=== PATIENT | male | born 1930 | race Caucasian/White ===

== ENCOUNTER 2016-10-01 18:33 | Inpatient (IN) | payer MEDICARE ==
[2016-10-01] MEDS ORDERED: NS 1,000 ML IV ONE ×2 (18:56→23:07)
[2016-10-01] MEDS ORDERED: IBUPROFEN 800 MG TAB PO ONE (18:56)
--- NOTE | 2016-10-01 18:56 | EDPRACDOC ---
- General Information Information Source: Patient, [employer] Mode Of Arrival: Ambulance - History of Present Illness Onset: 14 hrs HPI: PT STATES "I THINK I HAVE THE FLU", SYMPTOMS SINCE YESTERDAY, STATES NONPROD COUGH, SOBR, BODY ACHES, NO N/V/D, NO URINARY SYMPTOMS, TOOK TYLENOL THIS MORNING. Shortness of Breath: Mild Relevant History of: Reports: None Cough: Reports: Non-productive Rhinorrhea: Reports: Clear Fever Severity/Quality: Reports: greater than 102 F Ear Symptoms: Reports: None Recently treated infections: Denies: Otitis media, Pneumonia, URI Associated Signs & Symptoms: Reports: Cough, Fever, Nasal Symptoms, Myalgia. Denies: Earache, Headache, Sore Throat, Nausea, Vomiting, Diarrhea, Rash, Pain with head movement, AMS Oral Intake: Normal Urinary Output: Normal <Severo Spencer - Last Filed: 10/01/16 20:40> <Edin Alba - Last Filed: 10/01/16 21:13> - General Information Chief Complaint: Fever Stated Complaint: WEAKNESS,FEVER Time Seen by Provider: 10/01/16 18:49 Home Medications: Home Medications Donepezil HCl [Aricept] 10 mg PO QHS 08/25/13 Nortriptyline HCl 75 mg PO QHS 08/25/13 Clonazepam 1 mg PO QHS 08/31/15 Meloxicam 15 mg PO QHS 08/31/15 Prednisone [Deltasone, Orasone] 5 mg PO DAILY 08/31/15 Pregabalin [Lyrica] 150 mg PO QHS 08/31/15 Zolpidem Tartrate [Ambien] 10 mg PO HS 08/31/15 Nitroglycerin Sublingual Tab [NTG (NitroStat Sublingual Tab)] 0.4 mg SL PRN PRN #30 tablet 09/01/15 Aspirin (Enteric Coated) [Ecotrin] 81 mg PO DAILY 09/03/15 Metoprolol Succinate (XL) [Toprol Xl] 25 mg PO DAILY 09/03/15 Atorvastatin Calcium [Lipitor] 20 mg PO HS 10/01/16 Fentanyl [Duragesic] 12 mcg TOP Q72H 10/01/16 Fentanyl [Duragesic] 25 mcg TOP Q72H 10/01/16 Furosemide [Lasix] 40 mg PO DAILY 01/29/17 Allergies/Adverse Reactions: Allergies Allergy/AdvReac Type Severity Reaction Status Date / Time No Known Allergies Allergy Verified 09/03/15 15:13 - Treatment Prior to ED Arrival Reported Medications/Treatment DETASSELER Meds/Treatments Given O2 via Cannula EMS Treatment ALS IV Yes <Severo Spencer - Last Filed: 10/01/16 20:40> - Treatment Prior to ED Arrival Reported Medications/Treatment DETASSELER Meds/Treatments Given O2 via Cannula EMS Treatment ALS IV Yes <Edin Alba - Last Filed: 10/01/16 21:13> ED Past Medical History - History Reviewed Yes Nurses notes reviewed and agree except as marked - Patient Medical History Neurological History: Reports: Dementia Cardiac History: Reports: Hypertension, Cardiac Catheterization (In 1995 clean) , Cardiomyopathy (Ejection fraction 43% by echocardiogram earlier this year) Respiratory History: Reports: Asthma, COPD, Pulmonary Embolism Musculoskeletal History: Reports: Arthritis Psychological History: Reports: Depression, Anxiety. Denies: Substance Use Disorder Systemic History: Denies: Cancer Additional Past Medical History: POST HERPETIC NEURALGIA R FLANK FOR ~ 3 YEARS Surgical History: Reports: Cardiac Catheterization (In 1995), Hernia Surgery, Tonsillectomy/Adnoidectomy - Family Medical History Reports: Diabetes (MOTHER), Cancer (BRAIN TUMOR) - Social Medical History Smoking Status: Never smoker Social History: Denies: Substance Use Disorder ETOH: None Substance Abuse: None Lives With: Spouse Lives In: Home <Severo Spencer - Last Filed: 10/01/16 20:40> EDM Review of Systems - Review of Systems Constitutional: Chills, Fever Eyes: negative: Blurred Vision, Double Vision Ears: negative: Drainage Throat: negative: Pain Nose: Congestion. negative: Discharge Respiratory: Cough, Shortness of Breath. negative: Wheezing Cardiovascular: negative: Chest Pain, Palpitations Gastrointestinal: negative: Diarrhea, Nausea, Pain, Vomiting Genitourinary: negative: Dysuria, Frequency Neurological: negative: Dizziness, Headache, Numbness, Weakness Musculoskeletal: No Symptoms Reported Integumentary: No Symptoms Reported <Severo Spencer - Last Filed: 10/01/16 20:40> - Physical Exam Constitutional: Alert (Awake), No apparent distress Oriented to: Time, Person, Place Last recorded Vital Signs: Last Vital Signs Temp 103 F H 10/01/16 18:52 Pulse 115 01/29/17 18:52 Resp 23 10/01/16 18:52 BP 100/63 10/01/16 18:52 Pulse Ox 93 10/01/16 18:52 Oxygen Pulse Oxygen Saturation 93 O2 Device Oxygen Flow Rate Fraction of Inspired Oxygen ( FIO2) - HEENT Head: Normal ( normocephalic) Eye Exam: Normal (PERRL, EOMI, Sclera white) Oropharynx: Normal (Pharynx:Moist without exudate,Gums-no swelling) Tympanic Membrane: Normal ENT EAC: Normal TMJ: Normal Nose: No Symptoms Reported (septum midline) Neck: Normal (FROM, trachea at midline) - Respiratory/Cardiovascular Respiratory: Rhonchi. negative: Accessory Muscle Use, Retractions Cardiovascular: Normal (RRR without murmur, gallop or rub) - GI Auscultation: Normal (NABS) Palpation: Normal (Soft,No rebound or guarding, non distended) Tenderness: Non tender Crouch's Sign: Negative - Musculoskeletal Back: Normal (Non-Tender) Extremities: Normal (Normal tone, Pulses 2+ No cyanosis or edema, FROM) - Integumentary Skin: Normal, Warm, Dry Lymphatics: Normal (no adenopathy) - Neurologic Memory Impaired: Normal Motor Function: Normal (Normal tone, Pulses 2+ No cyanosis or edema, FROM) Cranial Nerve: Normal (CN II-X11 intact sensation, strength 5/5) Cerebellar: Normal Mood Description: Normal Perception: Normal <Severo Spencer - Last Filed: 10/01/16 20:40> - Physical Exam Last recorded Vital Signs: Last Vital Signs Temp 99.8 F 10/01/16 20:22 Pulse 103 10/01/16 20:54 Resp 18 10/01/16 20:54 BP 125/66 10/01/16 20:54 Pulse Ox 92 10/01/16 20:54 Oxygen Pulse Oxygen Saturation 92 O2 Device Nasal Cannula Oxygen Flow Rate 2 Fraction of Inspired Oxygen ( FIO2) <Edin Alba - Last Filed: 10/01/16 21:13> - Differential Diagnosis Influenza A B, Pneumonia, Sinusitis, URI - Re-evaluation Re-evaluation 1 Re-evaluation Time: 20:43 (NO CHANGE) - Results 10/01/16 18:59 10/01/16 18:59 - EKG EKG #1 EKG Time: 18:54 -: Yes EKG interpreted by me Rate: bpm: 111 [place]: Normal Rhythm: ST Block: LBBB Hypertrophy: None ST: Nonsp Comparison: 08/31/15 (NO CHANGE) - Diagnostic Imaging CXR Image interpreted by: Radiologist CHEST - 2 VIEW COMPARISON: None. FINDINGS: The heart is enlarged. Chronic interstitial coarsening is present. There is no focal airspace disease within the medial right lower lobe. No other focal airspace consolidation is present. Atherosclerotic changes are noted at the aortic arch. The visual soft tissues and bony thorax are unremarkable. IMPRESSION: 1. New medial right lower lobe pneumonia. 2. Cardiomegaly and chronic interstitial lung changes without edema or effusion. <Severo Spencer - Last Filed: 10/01/16 20:40> - Results 10/01/16 18:59 10/01/16 18:59 WBC 7.8 xk/uL (3.8-10.8) 10/01/16 18:59 RBC 5.25 xM/uL (4.70-6.10) 10/01/16 18:59 Hgb 14.9 g/dL (14.0-18.0) 10/01/16 18:59 Hct 44.2 % (42-52) 10/01/16 18:59 MCV 84 fL (80-94) 10/01/16 18:59 MCH 28.3 pg (27-32) 10/01/16 18:59 MCHC 33.7 g/dl (33-36) 10/01/16 18:59 RDW 13.6 % (11.5-14.5) 10/01/16 18:59 Plt Count 123 xk/uL (130-400) L 10/01/16 18:59 MPV 8.7 fL (7.4-10.4) 10/01/16 18:59 Neut % (Auto) 82.6 % (45-76) H 10/01/16 18:59 Lymph % (Auto) 9.3 % (17-44) L 10/01/16 18:59 [place] % (Auto) 6.7 % (3-10) 10/01/16 18:59 Eos % (Auto) 0.8 % (0-5) 10/01/16 18:59 Baso % (Auto) 0.6 % (0-2) 10/01/16 18:59 Absolute Neuts (auto) 6.40 xk/uL (1.7-8.2) 10/01/16 18:59 Absolute Lymphs (auto) 0.70 xk/uL (0.65-4.75) 10/01/16 18:59 PT 11.5 SEC (9.2-11.2) H 10/01/16 18:59 INR 1.1 10/01/16 18:59 APTT 25.5 SEC (22-35) 10/01/16 18:59 Puncture Site Left radial 10/01/16 20:55 pH 7.480 pH UNITS (7.35-7.45) H 10/01/16 20:55 pCO2 36.0 mmHg (35-45) 10/01/16 20:55 pO2 64.0 mmHg (80-100) L 10/01/16 20:55 HCO3 26.8 MMOL/L (22-26) H 10/01/16 20:55 Total CO2 27.9 MMOL/L (23-27) H 10/01/16 20:55 Base Excess 3.4 (+/- 2) H 10/01/16 20:55 FiO2 % 21 10/01/16 20:55 Specimen Drawn By Rakma 10/01/16 20:55 Sodium 140 mEq/L (137-146) 10/01/16 18:59 Potassium 3.1 mEq/L (3.5-5.1) L 10/01/16 18:59 Chloride 97 mEq/L (98-107) L 10/01/16 18:59 Carbon Dioxide 31 mMOL/L (22-33) 10/01/16 18:59 Anion Gap 15 mEq/L (8-16) 10/01/16 18:59 BUN 12 MG/DL (9-20) 10/01/16 18:59 Creatinine 0.90 MG/DL (0.66-1.25) 10/01/16 18:59 Estimated GFR (MDRD) > 60 mL/min (>=60) 10/01/16 18:59 Glucose 126 MG/DL (70-99) H 10/01/16 18:59 Calculated Osmolality 271 MOs/Kg (270-290) 10/01/16 18:59 Lactic Acid 1.9 mEq/L (0.7-2.1) 10/01/16 18:59 Calcium 8.8 MG/DL (8.4-10.2) 10/01/16 18:59 Total Bilirubin 1.9 MG/DL (0.2-1.3) H 10/01/16 18:59 AST 29 IU/L (17-59) 10/01/16 18:59 ALT 38 IU/L (21-72) 10/01/16 18:59 Alkaline Phosphatase 86 IU/L (50-160) 10/01/16 18:59 Troponin I 0.04 ng/mL (<.04) 10/01/16 18:59 Xix-E-Mgmujzntzlb Pept 3010 pg/mL (0-1800) H 10/01/16 18:59 Total Protein 6.9 G/DL (6.3-8.2) 10/01/16 18:59 Albumin 4.1 G/DL (3.5-5.0) 10/01/16 18:59 Lipase 49 U/L (23-300) 10/01/16 18:59 Urine Color Yellow 10/01/16 19:11 Urine Clarity Clear 10/01/16 19:11 Urine pH 5.0 (5.0-8.0) 10/01/16 19:11 Ur Specific [place] 1.010 (1.003-1.035) 10/01/16 19:11 Urine Protein Neg (NEG/TRACE) 10/01/16 19:11 Urine Glucose (UA) Neg (NEGATIVE) 10/01/16 19:11 Urine Ketones Neg (NEGATIVE) 10/01/16 19:11 Urine Occult Blood Neg (NEG/TRACE) 10/01/16 19:11 Urine Nitrite Neg (NEGATIVE) 10/01/16 19:11 Urine Bilirubin Neg (NEGATIVE) 10/01/16 19:11 Urine Urobilinogen <2.0 MG/DL (0-1) 10/01/16 19:11 Ur Leukocyte Esterase Neg (NEGATIVE) 10/01/16 19:11 Urine RBC 0-2 (0-2) 10/01/16 19:11 Urine WBC 0-2 (0-2) 10/01/16 19:11 Urine Bacteria Few (NEG/FEW) 10/01/16 19:11 Hyaline Casts 0-2 (0-2) 10/01/16 19:11 Urine Mucus Occ (NEG/OCC) 10/01/16 19:11 Microbiology 10/01/16 19:26 Influenza Type A Antigen Screen - Final Nasal Washing/Aspirate Or Swab POSITIVE Please note: POSITIVE results do not rule out co-infection with other pathogens or identify any specific subtypes of Influenza A or B. ("NORMAL" value = "NEGATIVE".) Influenza Type B Antigen Screen - Final NEGATIVE Please note: A NEGATIVE result does not exclude an influenza virus infection. It is a presumptive result and, if required, confirmation should be done using either a virus culture or an FDA-cleared influenza A&B molecular assay. ("NORMAL" value = "NEGATIVE".) Lab Results 10/01/16 10/01/16 10/01/16 20:55 19:11 18:59 WBC RBC Hgb Hct MCV MCH MCHC RDW Plt Count MPV Neut % (Auto) Lymph % (Auto) [place] % (Auto) Eos % (Auto) Baso % (Auto) Absolute Neuts (auto) Absolute Lymphs (auto) PT 11.5 H INR 1.1 APTT 25.5 Puncture Site Left radial pH 7.480 H pCO2 36.0 pO2 64.0 L HCO3 26.8 H Total CO2 27.9 H Base Excess 3.4 H FiO2 % 21 Specimen Drawn By Rakma Sodium Potassium Chloride Carbon Dioxide Anion Gap BUN Creatinine Estimated GFR (MDRD) Glucose Calculated Osmolality Lactic Acid Calcium Total Bilirubin AST ALT Alkaline Phosphatase Troponin I Wuh-L-Ofnyiqclfrd Pept Total Protein Albumin Lipase Urine Color Yellow Urine Clarity Clear Urine pH 5.0 Ur Specific [place] 1.010 Urine Protein Neg Urine Glucose (UA) Neg Urine Ketones Neg Urine Occult Blood Neg Urine Nitrite Neg Urine Bilirubin Neg Urine Urobilinogen <2.0 Ur Leukocyte Esterase Neg Urine RBC 0-2 Urine WBC 0-2 Urine Bacteria Few Hyaline Casts 0-2 Urine Mucus Occ 10/01/16 10/01/16 10/01/16 18:59 18:59 18:59 WBC 7.8 RBC 5.25 Hgb 14.9 Hct 44.2 MCV 84 MCH 28.3 MCHC 33.7 RDW 13.6 Plt Count 123 L MPV 8.7 Neut % (Auto) 82.6 H Lymph % (Auto) 9.3 L [place] % (Auto) 6.7 Eos % (Auto) 0.8 Baso % (Auto) 0.6 Absolute Neuts (auto) 6.40 Absolute Lymphs (auto) 0.70 PT INR APTT Puncture Site pH pCO2 pO2 HCO3 Total CO2 Base Excess FiO2 % Specimen Drawn By Sodium 140 Potassium 3.1 L Chloride 97 L Carbon Dioxide 31 Anion Gap 15 BUN 12 Creatinine 0.90 Estimated GFR (MDRD) > 60 Glucose 126 H Calculated Osmolality 271 Lactic Acid 1.9 Calcium 8.8 Total Bilirubin 1.9 H AST 29 ALT 38 Alkaline Phosphatase 86 Troponin I 0.04 Agx-Q-Frkevytlrlj Pept 3010 H Total Protein 6.9 Albumin 4.1 Lipase 49 Urine Color Urine Clarity Urine pH Ur Specific [place] Urine Protein Urine Glucose (UA) Urine Ketones Urine Occult Blood Urine Nitrite Urine Bilirubin Urine Urobilinogen Ur Leukocyte Esterase Urine RBC Urine WBC Urine Bacteria Hyaline Casts Urine Mucus <Edin Alba - Last Filed: 10/01/16 21:13> <Severo Spencer - Last Filed: 10/01/16 20:40> - Departure Yes I personally saw and evaluated the patient. Disposition: Admit IP To This Hospital Education/Counseling Given To: Patient Education/Counseling Given Regarding: Diagnosis, Treatment, Prognosis Decision to Admit Time: 21:13 Decision to admit date: 10/01/16 Decision to admit: from ED - Physician Consulted Hospitalist Time Called: 21:13 Provider Called: Vikas Garay Time Roll Icer Machine Returned Call: 21:13 <Edin Alba - Last Filed: 10/01/16 21:13> - Departure Condition: Stable Final Diagnosis: Influenza A, Weakness Right lower lobe pneumonia Qualifiers: Pneumonia type: due to influenza A virus Qualified Code(s): J11.00 - Influenza due to unidentified influenza virus with unspecified type of pneumonia Referrals: Corry Julian NP [Primary Care Provider] - One Week Prescriptions: No Action Nortriptyline HCl 75 mg PO QHS Donepezil HCl [Aricept] 10 mg PO QHS Zolpidem Tartrate [Ambien] 10 mg PO HS Pregabalin [Lyrica] 150 mg PO QHS Clonazepam 1 mg PO QHS Meloxicam 15 mg PO QHS Prednisone [Deltasone, Orasone] 5 mg PO DAILY Nitroglycerin Sublingual Tab [NTG (NitroStat Sublingual Tab)] 0.4 mg SL PRN PRN #30 tablet PRN Reason: Chest Pain Or Discomfort Aspirin (Enteric Coated) [Ecotrin] 81 mg PO DAILY Metoprolol Succinate (XL) [Toprol Xl] 25 mg PO DAILY Furosemide [Lasix] 40 mg PO DAILY Fentanyl [Duragesic] 12 mcg TOP Q72H Fentanyl [Duragesic] 25 mcg TOP Q72H Atorvastatin Calcium [Lipitor] 20 mg PO HS
[2016-10-01 19:11] LABS: AUTOMATED BASOPHIL 0.6 % (0-2); AUTOMATED EOSINOPHIL 0.8 % (0-5); AUTOMATED LYMPH 9.3 % (17-44); AUTOMATED MONOCYTE 6.7 % (3-10); AUTOMATED NEUTROPHIL 82.6 % (45-76); MPV 8.7 fL (7.4-10.4)
[2016-10-01 19:19] LABS: BLOOD UREA NITROGEN 12 MG/DL (9-20); CALCIUM 8.8 MG/DL (8.4-10.2); CALCULATED OSMOLALITY 271 MOs/Kg (270-290); CHLORIDE 97 mEq/L (98-107); GLUCOSE 126 MG/DL (70-99); SODIUM LEVEL 140 mEq/L (137-146); TOTAL PROTEIN 6.9 G/DL (6.3-8.2)
[2016-10-01 19:32] LABS: LEUKOCYTES/URINE NEG (NEGATIVE); NITRITE/URINE NEG (NEGATIVE); RBC/URINE 0-2 (0-2); URINE OCCULT BLOOD NEG (NEG/TRACE); WBC/URINE 0-2 (0-2)
[2016-10-01 19:55] LABS: PARTIAL THROMB. TIME 25.5 SEC (22-35); PT-INR 1.1
--- NOTE | 2016-10-01 20:39 | DIRPT ---
CLINICAL DATA: Cough and fever. EXAM: CHEST - 2 VIEW COMPARISON: None. FINDINGS: The heart is enlarged. Chronic interstitial coarsening is present. There is no focal airspace disease within the medial right lower lobe. No other focal airspace consolidation is present. Atherosclerotic changes are noted at the aortic arch. The visual soft tissues and bony thorax are unremarkable. IMPRESSION: 1. New medial right lower lobe pneumonia. 2. Cardiomegaly and chronic interstitial lung changes without edema or effusion. Electronically Signed By: Alexis Hernandez M.D. On: 10/01/2016 20:36
[2016-10-01] MEDS ORDERED: Levofloxacin 500 mg/100 ml D5W 500 MG/100 ML RTU IV ONE (20:43)
[2016-10-01] MEDS ORDERED: OSELTAMIVIR PHOSPHATE 75 MG CAP PO ONE (20:43)
[2016-10-01 21:01] LABS: ALLEN'S TEST PASS; BEb 3.4 (+/- 2); TCO2 27.9 MMOL/L (23-27)
[2016-10-01 21:02] LABS: ABG Draw Site Left Radial
[2016-10-01] MEDS ORDERED: TUSSIONEX 5 ML ORAL SYRINGE PO ONE (21:16)
[2016-10-01] MEDS ORDERED: CEFTRIAXONE 1 GM in D5W 100 ML IV ONE (21:48)
--- NOTE | 2016-10-01 21:54 | HISTPHYS ---
- Chief Complaint shortness of breath - History of Present Illness PRIMARY CARE PROVIDER: Corry Julian HPI: The patient is an 86 yo man who presents with shortness of breath and feeling bad all over. Onset: over last few days. Duration: intermittent. Character: difficulty getting a good breath. Alleviated by: Nothing. Exacerbated by: exertion. Associated Symptoms: No chest pain or palpitations. Coughing and shortness of breath. No wheezing. Fever and chills. Generalized muscle aches and joint aches. Nausea. Treatments: none at home except usual medications. - Medical History Cardiac History: Reports: Hypertension, Cardiac Catheterization (In 1995 clean) , Cardiomyopathy (Ejection fraction 43% by echocardiogram earlier this year) Respiratory History: Reports: Asthma, COPD, Pulmonary Embolism Musculoskeletal History: Reports: Arthritis Systemic History: Denies: Cancer Neurological History: Reports: Dementia Psychological History: Reports: Depression, Anxiety. Denies: Substance Use Disorder - Surgical History Reports: Cardiac Catheterization (In 1995), Hernia Surgery, Tonsillectomy/ Adnoidectomy - Medictions/Allergies Allergies No Known Allergies Allergy (Verified 09/03/15 15:13) Current Medication List: Reviewed Home Medications Donepezil HCl [Aricept] 10 mg PO QHS 08/25/13 Nortriptyline HCl 75 mg PO QHS 08/25/13 Clonazepam 1 mg PO QHS 08/31/15 Meloxicam 15 mg PO QHS 08/31/15 Prednisone [Deltasone, Orasone] 5 mg PO DAILY 08/31/15 Pregabalin [Lyrica] 150 mg PO QHS 08/31/15 Zolpidem Tartrate [Ambien] 10 mg PO HS 08/31/15 Nitroglycerin Sublingual Tab [NTG (NitroStat Sublingual Tab)] 0.4 mg SL PRN PRN #30 tablet 09/01/15 Aspirin (Enteric Coated) [Ecotrin] 81 mg PO DAILY 09/03/15 Metoprolol Succinate (XL) [Toprol Xl] 25 mg PO DAILY 09/03/15 Atorvastatin Calcium [Lipitor] 20 mg PO HS 10/01/16 Fentanyl [Duragesic] 12 mcg TOP Q72H 10/01/16 Fentanyl [Duragesic] 25 mcg TOP Q72H 10/01/16 Furosemide [Lasix] 40 mg PO DAILY 10/01/16 - Family History Reports: Diabetes (MOTHER), Cancer (BRAIN TUMOR) - Social History Smoking Status: Never smoker Social History: Denies: Alcohol Use, Substance Use Disorder - Review of Systems GENERAL: Fever and chills. Positive for fatigue/malaise. HEENT: No nasal discharge or bleeding. No throat pain or swelling. No eye pain or eye redness. RESPIRATORY: No wheezing. Coughing and shortness of breath. CARDIOVASCULAR: No chest pain or palpitations. GI: Nausea. No abdominal pain, vomiting, diarrhea, constipation, or bloody stool. NEUROLOGICAL: No headache or focal weakness. INTEGUMENT: no rashes, itching, or lesions. LYMPHATIC SYSTEM: no lymph node swelling or pain. MUSCULOSKELETAL: Joint and muscle aches generalized. No joint swelling. GENITOURINARY: No dysuria or hematuria. ENDOCRINE: No polyuria or polydipsia. HEME: No chronic anemia, bleeding, or easy bruising. - Physical Exam Vital Signs: Initial Vitals Temperature 103 F H 10/01/16 18:46 Pulse Rate 115 10/01/16 18:46 Respiratory Rate 24 10/01/16 18:46 Blood Pressure 106/70 10/01/16 18:46 Pulse Oxygen Saturation 93 10/01/16 18:46 Vital Signs - 24 hr 10/01/16 10/01/16 10/01/16 18:46 18:52 19:26 Temperature 103 F H 103 F H Pulse Rate 115 115 107 Respiratory 24 23 20 Rate Blood Pressure 106/70 100/63 110/64 Pulse Oxygen 93 93 89 L Saturation 10/01/16 10/01/16 10/01/16 19:49 20:22 20:54 Temperature 99.8 F Pulse Rate 103 Respiratory 18 Rate Blood Pressure 125/66 Pulse Oxygen 95 92 Saturation Weight: 86.1 kg Height: 6 feet BMI: 25.8 - Other Exam Other Exam Findings: GENERAL: Ill-appearing, well nourished, in acute distress. HEENT: Normocephalic, atraumatic; pupils equal and round. Nares patent, without discharge or bleeding. No oropharyngeal lesions or erythema. Mucous membranes are dry. NECK: is supple, no masses, trachea midline. RESPIRATORY: Clear to auscultation bilaterally. Chest wall movements are symmetric. No use of accessory muscles to breathe. Intermittent tachypnea. Rhonchi on right. No wheezing, rales. CARDIOVASCULAR: Normal S1, S2. Murmur 2/6 systolic. No rubs, or gallops. PMI non -displaced. Carotids: no carotid bruits. No bradycardia or tachycardia. DP pulses 2+ bilaterally. GI: soft, nontender, non-distended, normal active bowel sounds. No hepatosplenomegaly. INTEGUMENT: Clean, dry, and intact. No rashes. MUSCULOSKELETAL: No cyanosis. No clubbing. Edema: none bilaterally. NEUROLOGICAL: Cranial nerves 2-12 grossly intact. Motor 4/5 throughout. Reflexes : 2+ bilaterally. Babinski: toes downgoing bilaterally. Intact Finger to nose. Sensory grossly intact to light touch. No pronator drift. PSYCHIATRIC: Oriented. Normal and appropriate affect. LYMPHATIC: No cervical lymphadenopathy. No supraclavicular lymphadenopathy. - Lab Results Laboratory Results - last 24 hr 10/01/16 10/01/16 10/01/16 18:59 18:59 18:59 WBC 7.8 RBC 5.25 Hgb 14.9 Hct 44.2 MCV 84 MCH 28.3 MCHC 33.7 RDW 13.6 Plt Count 123 L MPV 8.7 Neut % (Auto) 82.6 H Lymph % (Auto) 9.3 L [place] % (Auto) 6.7 Eos % (Auto) 0.8 Baso % (Auto) 0.6 Absolute Neuts (auto) 6.40 Absolute Lymphs (auto) 0.70 PT INR APTT Puncture Site pH pCO2 pO2 HCO3 Total CO2 Base Excess FiO2 % Specimen Drawn By Sodium 140 Potassium 3.1 L Chloride 97 L Carbon Dioxide 31 Anion Gap 15 BUN 12 Creatinine 0.90 Estimated GFR (MDRD) > 60 Glucose 126 H Calculated Osmolality 271 Lactic Acid 1.9 Calcium 8.8 Total Bilirubin 1.9 H AST 29 ALT 38 Alkaline Phosphatase 86 Troponin I 0.04 Mbu-B-Vhaczptphub Pept 3010 H Total Protein 6.9 Albumin 4.1 Lipase 49 Urine Color Urine Clarity Urine pH Ur Specific [place] Urine Protein Urine Glucose (UA) Urine Ketones Urine Occult Blood Urine Nitrite Urine Bilirubin Urine Urobilinogen Ur Leukocyte Esterase Urine RBC Urine WBC Urine Bacteria Hyaline Casts Urine Mucus 10/01/16 10/01/16 10/01/16 18:59 19:11 20:55 WBC RBC Hgb Hct MCV MCH MCHC RDW Plt Count MPV Neut % (Auto) Lymph % (Auto) [place] % (Auto) Eos % (Auto) Baso % (Auto) Absolute Neuts (auto) Absolute Lymphs (auto) PT 11.5 H INR 1.1 APTT 25.5 Puncture Site Left radial pH 7.480 H pCO2 36.0 pO2 64.0 L HCO3 26.8 H Total CO2 27.9 H Base Excess 3.4 H FiO2 % 21 Specimen Drawn By Rakma Sodium Potassium Chloride Carbon Dioxide Anion Gap BUN Creatinine Estimated GFR (MDRD) Glucose Calculated Osmolality Lactic Acid Calcium Total Bilirubin AST ALT Alkaline Phosphatase Troponin I Kfw-H-Psfeffkffbk Pept Total Protein Albumin Lipase Urine Color Yellow Urine Clarity Clear Urine pH 5.0 Ur Specific [place] 1.010 Urine Protein Neg Urine Glucose (UA) Neg Urine Ketones Neg Urine Occult Blood Neg Urine Nitrite Neg Urine Bilirubin Neg Urine Urobilinogen <2.0 Ur Leukocyte Esterase Neg Urine RBC 0-2 Urine WBC 0-2 Urine Bacteria Few Hyaline Casts 0-2 Urine Mucus Occ - Diagnostic Findings EK bpm. Sinus tachycardia. Left bundle branch block. Compared with previous EKG, the LBBB is old. Reviewed EKG personally. Chest x-ray, viewed personally: EXAM: CHEST - 2 VIEW COMPARISON: None. FINDINGS: The heart is enlarged. Chronic interstitial coarsening is present. There is no focal airspace disease within the medial right lower lobe. No other focal airspace consolidation is present. Atherosclerotic changes are noted at the aortic arch. The visual soft tissues and bony thorax are unremarkable. IMPRESSION: 1. New medial right lower lobe pneumonia. 2. Cardiomegaly and chronic interstitial lung changes without edema or effusion. - Assessment (1) Sepsis A41.9 - SEPSIS, UNSPECIFIED ORGANISM Acute Present on Admission: Yes Qualifiers: Sepsis type: S Present on admission. Criteria: Fever and tachycardia Source: pneumonia. Plan: Sepsis order set. IV antibiotics of ceftriaxone and azithromycin. P.o. Tamiflu to cover the influenza A. IV fluids to provide volume. Monitor for signs of volume depletion, monitor blood pressure carefully. If still hypotensive with IV fluids consider pressors. Close monitoring. Telemetry. IVF: initial IVF 30 mL/kg x 1, then 250 mL/hr x 1 L, then maintenance IVF. (2) Right lower lobe pneumonia J18.1 - LOBAR PNEUMONIA, UNSPECIFIED ORGANISM Acute Present on Admission: Yes Qualifiers: Pneumonia type: due to influenza A virus Aspiration pneumonia type: A Qualified Code(s): J11.00 - Influenza due to unidentified influenza virus with unspecified type of pneumonia Patient is positive for influenza; however, there are cases of superimposed bacterial infection and therefore the patient will also be covered for possible bacterial pneumonia. Plan: Continuous oxygen support. IV ceftriaxone and IV azithromycin. P.o. Tamiflu. Cultures have been ordered. (3) Influenza A J10.1 - FLU DUE TO OTH IDENT INFLUENZA VIRUS W OTH RESP MANIFEST Acute Present on Admission: Yes Influenza A. Pneumonia due to influenza A. Plan: Start Tamiflu. O2 by nasal cannula. (4) Hypoxemia R09.02 - HYPOXEMIA Acute Present on Admission: Yes Plan: O2 by nasal cannula p.r.n. and increase to Venti mask if needed. (5) Hypokalemia E87.6 - HYPOKALEMIA Acute Present on Admission: Yes Replace potassium with KCl. Check magnesium level and replace as needed. (6) Elevated brain natriuretic peptide (BNP) level R79.89 - OTHER SPECIFIED ABNORMAL FINDINGS OF BLOOD CHEMISTRY Acute Present on Admission: Yes Monitor for fluid overload. Case Care Discussed with: Patient, Family - Focused CV Perfusion Exam Date exam occurred: 10/01/16 Time of Exam: 23:00 Vital Signs: Last Vital Signs Temp 99.8 F 10/01/16 20:22 Pulse 88 10/01/16 22:59 Resp 20 10/01/16 22:59 BP 123/66 10/01/16 22:59 Pulse Ox 97 10/01/16 22:59 Respiratory: Chest non-tender, Rhonchi Cardiovascular/Chest: Normal (Normal S1 and S2). negative: Irregular Capillary Refill: Immediate Peripheral pulses: Full: Radial (R), Radial (L), Dorsalis pedis (R), Dorsalis pedis (L), Posterior tibialis (R), Posterior tibialis (L) Skin Color: Pale. negative: Cyanotic Skin Turgor: <3 Seconds
[2016-10-01] MEDS ORDERED: NITROGLYCERINE 0.4 MG TAB SL PRN (23:04)
[2016-10-01] MEDS ORDERED: BENZONATATE 100 MG PERLES PO PRN (23:07)
[2016-10-01] MEDS ORDERED: Aluminum;Magnesium;Simethicone 30 ML UDC PO PRN (23:07)
[2016-10-01] MEDS ORDERED: TEMAZEPAM 15 MG CAP PO PRN (23:07)
[2016-10-01] MEDS ORDERED: SENNA CONCENTRATE TAB PO PRN (23:07)
[2016-10-01] MEDS ORDERED: GUAIFEN 100 MG-DEXTROMETH 10 MG PER 5 ML PO PRN (23:07)
[2016-10-01] MEDS ORDERED: BISACODYL 5 MG TAB PO PRN (23:07)
[2016-10-01] MEDS ORDERED: ACETAMINOPHEN 325 MG SUPP PR PRN (23:07)
[2016-10-01] MEDS ORDERED: PROMETHAZINE 25 MG/ML VIAL IV PRN (23:07)
[2016-10-01] MEDS ORDERED: ONDANSETRON HCL 4 MG/2 ML VIAL IV PRN (23:07)
[2016-10-01] MEDS ORDERED: Non-Formulary Medication ITEM (Meloxicam [Meloxicam] 15 MG) PO SCH (23:15)
[2016-10-01] MEDS ORDERED: ZOLPIDEM TARTRATE 10 MG PO SCH (23:15)
[2016-10-01] MEDS ORDERED: Non-Formulary Medication ITEM (Pregabalin [Lyrica] 150 MG) PO SCH (23:15)
[2016-10-01] MEDS ORDERED: CLONAZEPAM 1 MG PO SCH (23:15)
[2016-10-01] MEDS ORDERED: Pharmacy Order Set Alert SCH (23:45)
[2016-10-01] MEDS ORDERED: ATORVASTATIN 40 MG TAB PO SCH (23:45)
[2016-10-01] MEDS ORDERED: PREGABALIN 50 MG CAP PO ONE (23:45)
[2016-10-01] MEDS ORDERED: ZOLPIDEM TARTRATE 5 MG TAB PO ONE (23:45)
[2016-10-01] MEDS ORDERED: NORTRIPTYLINE HCL 10 MG CAP PO SCH (23:45)
[2016-10-02] MEDS: POTASSIUM CHLORIDE 20 MEQ TAB PO SCH ×3 (00:45→05:17)
[2016-10-02] MEDS: ENOXAPARIN 40 MG/0.4 ML PFS SQ SCH ×2 (00:47→21:15)
[2016-10-02] MEDS: ATORVASTATIN 20 MG TAB PO SCH ×2 (00:47→19:53)
[2016-10-02] MEDS: DONEPEZIL HCL 10 MG TAB PO SCH ×2 (00:47→19:53)
[2016-10-02] MEDS: MELOXICAM 7.5 MG TAB PO SCH ×2 (00:48→19:53)
[2016-10-02] MEDS: NORTRIPTYLINE HCL 25 MG CAP PO SCH ×2 (00:49→19:54)
[2016-10-02] MEDS ORDERED: Vaccine Screening Complete SCH (01:00)
[2016-10-02] MEDS ORDERED: NS 1,000 ML IV ONE (01:08)
[2016-10-02] MEDS: AZITHROMYCIN 500 MG in D5W 250 ML IV SCH ×2 (01:56→23:36)
[2016-10-02 04:54] LABS: MPV 8.7 fL (7.4-10.4)
[2016-10-02 05:12] LABS: BLOOD UREA NITROGEN 12 MG/DL (9-20); CALC CORRECTED 8.9 MG/DL (8.4-10.2); CALCIUM 7.8 MG/DL (8.4-10.2); CALCULATED OSMOLALITY 266 MOs/Kg (270-290); CHLORIDE 102 mEq/L (98-107); GLUCOSE 134 MG/DL (70-99); SODIUM LEVEL 137 mEq/L (137-146); TOTAL PROTEIN 5.1 G/DL (6.3-8.2)
[2016-10-02] MEDS: NS 1,000 ML IV SCH ×3 (05:16→16:42)
[2016-10-02] MEDS: ACETAMINOPHEN 325 MG/TAB TABLET PO PRN ×2 (06:06→19:52)
[2016-10-02] MEDS: PREDNISONE 5 MG TAB PO SCH (09:55)
[2016-10-02] MEDS: FUROSEMIDE 40 MG TAB PO SCH (09:55)
[2016-10-02] MEDS: METOPROLOL (TOPROL-XL) 25 MG TAB PO SCH (09:56)
[2016-10-02] MEDS: OSELTAMIVIR PHOSPHATE 75 MG CAP PO SCH ×2 (09:56→19:54)
[2016-10-02] MEDS: FENTANYL 25 MCG PATCH TOP SCH (13:16)
[2016-10-02] MEDS: FENTANYL 12 MCG PATCH TOP SCH (13:16)
[2016-10-02] MEDS: LORAZEPAM 2 MG/ML VIAL ONE ×2 (13:34→16:10)
[2016-10-02] MEDS: PREGABALIN 50 MG CAP PO SCH ×2 (16:12→21:15)
--- NOTE | 2016-10-02 16:45 | GENMEDPROG ---
Chief Complaint: Appears severely ill and congested on exam. Says he just feels terrible all over. Markedly rhonchorous. Still with persistent fever. Notes Reviewed: Yes Events from last night noted and discussed with Clinical Staff Current Medication List: Reviewed Currently: Reports: Cough, Wheezing, NOLAN, SOB, Sputum, Abdominal Pain, Chest Pain. Denies: Nausea and Vomiting - Physical Examination Vital Signs and I&O: Last Vital Signs Temp 98.1 F 10/02/16 16:27 Pulse 89 10/02/16 16:27 Resp 20 10/02/16 16:27 BP 118/57 L 10/02/16 16:27 Pulse Ox 94 10/02/16 16:27 Oxygen Pulse Oxygen Saturation 94 O2 Device Nasal Cannula Oxygen Flow Rate 2 Fraction of Inspired Oxygen ( FIO2) Intake & Output 09/29/16 09/30/16 10/01/16 10/02/16 23:59 23:59 23:59 23:59 Intake Total 2830 Output Total 200 Balance 2630 Patient's weight 82.236 kg General: Alert, Oriented x3, Cooperative, Severe distress. negative: Well appearing (Diaphoretic and acutely ill-appearing) HEENT: Normal, PERRLA, EOMI, Anicteric Sclera Neck: Non-tender, Full range of motion, Normal Trachea alignment, Normal inspection. negative: JVD Lymphatics: Normal (no adenopathy) Respiratory: Rhonchi. negative: Accessory Muscle Use, Retractions Cardiovascular: No Gallops,Rubs/Murmurs. negative: Regular rate and rhythm ( Tachycardic) GI: Normal bowel sounds, Soft, Non tender, No hepatospenomegaly Extremities/Musculoskeletal: Normal pulses. negative: Tenderness, Swelling, Edema Skin: Warm,Dry and Intact. negative: No rashes, No breakdown, No significant lesion Neurological: Normal speech, Strength at 5/5 X4 ext, Normal tone, Cranial nerves 3-12 NL Psych/Mental Status: Appropriate, Normal Affect, Cooperative Lab/DI/Studies Reviewed: Laboratory Results - last 24 hr 10/01/16 10/01/16 10/01/16 18:59 18:59 18:59 WBC 7.8 RBC 5.25 Hgb 14.9 Hct 44.2 MCV 84 MCH 28.3 MCHC 33.7 RDW 13.6 Plt Count 123 L MPV 8.7 Neut % (Auto) 82.6 H Lymph % (Auto) 9.3 L [place] % (Auto) 6.7 Eos % (Auto) 0.8 Baso % (Auto) 0.6 Absolute Neuts (auto) 6.40 Absolute Lymphs (auto) 0.70 PT INR APTT Puncture Site pH pCO2 pO2 HCO3 Total CO2 Base Excess FiO2 % Specimen Drawn By Sodium 140 Potassium 3.1 L Chloride 97 L Carbon Dioxide 31 Anion Gap 15 BUN 12 Creatinine 0.90 Estimated GFR (MDRD) > 60 Glucose 126 H Calculated Osmolality 271 Lactic Acid 1.9 Calcium 8.8 Corrected Calcium Magnesium Total Bilirubin 1.9 H AST 29 ALT 38 Alkaline Phosphatase 86 Troponin I 0.04 Jbm-N-Rmaguhyzpyc Pept 3010 H Total Protein 6.9 Albumin 4.1 Lipase 49 Urine Color Urine Clarity Urine pH Ur Specific [place] Urine Protein Urine Glucose (UA) Urine Ketones Urine Occult Blood Urine Nitrite Urine Bilirubin Urine Urobilinogen Ur Leukocyte Esterase Urine RBC Urine WBC Urine Bacteria Hyaline Casts Urine Mucus 10/01/16 10/01/16 10/01/16 18:59 18:59 19:11 WBC RBC Hgb Hct MCV MCH MCHC RDW Plt Count MPV Neut % (Auto) Lymph % (Auto) [place] % (Auto) Eos % (Auto) Baso % (Auto) Absolute Neuts (auto) Absolute Lymphs (auto) PT 11.5 H INR 1.1 APTT 25.5 Puncture Site pH pCO2 pO2 HCO3 Total CO2 Base Excess FiO2 % Specimen Drawn By Sodium Potassium Chloride Carbon Dioxide Anion Gap BUN Creatinine Estimated GFR (MDRD) Glucose Calculated Osmolality Lactic Acid Calcium Corrected Calcium Magnesium 1.90 Total Bilirubin AST ALT Alkaline Phosphatase Troponin I Czo-E-Pvbvsrwyltx Pept Total Protein Albumin Lipase Urine Color Yellow Urine Clarity Clear Urine pH 5.0 Ur Specific [place] 1.010 Urine Protein Neg Urine Glucose (UA) Neg Urine Ketones Neg Urine Occult Blood Neg Urine Nitrite Neg Urine Bilirubin Neg Urine Urobilinogen <2.0 Ur Leukocyte Esterase Neg Urine RBC 0-2 Urine WBC 0-2 Urine Bacteria Few Hyaline Casts 0-2 Urine Mucus Occ 10/01/16 10/02/16 10/02/16 20:55 04:10 04:10 WBC 6.0 RBC 4.40 L Hgb 12.5 L D Hct 37.0 L MCV 84 MCH 28.4 MCHC 33.8 RDW 13.2 Plt Count 110 L MPV 8.7 Neut % (Auto) Lymph % (Auto) [place] % (Auto) Eos % (Auto) Baso % (Auto) Absolute Neuts (auto) Absolute Lymphs (auto) PT INR APTT Puncture Site Left radial pH 7.480 H pCO2 36.0 pO2 64.0 L HCO3 26.8 H Total CO2 27.9 H Base Excess 3.4 H FiO2 % 21 Specimen Drawn By Rakma Sodium 137 Potassium 3.5 Chloride 102 Carbon Dioxide 28 Anion Gap 11 BUN 12 Creatinine 0.70 Estimated GFR (MDRD) > 60 Glucose 134 H Calculated Osmolality 266 L Lactic Acid Calcium 7.8 L Corrected Calcium 8.9 Magnesium Total Bilirubin 1.4 H AST 28 ALT 35 Alkaline Phosphatase 66 Troponin I Yyy-T-Pkwqfceutfh Pept Total Protein 5.1 L Albumin 2.9 L Lipase Urine Color Urine Clarity Urine pH Ur Specific [place] Urine Protein Urine Glucose (UA) Urine Ketones Urine Occult Blood Urine Nitrite Urine Bilirubin Urine Urobilinogen Ur Leukocyte Esterase Urine RBC Urine WBC Urine Bacteria Hyaline Casts Urine Mucus - Assessment (1) Sepsis Acute A41.9 - SEPSIS, UNSPECIFIED ORGANISM Qualifiers: Sepsis type: sepsis due to unspecified organism Qualified Code(s): A41.9 - Sepsis, unspecified organism Comment/Plan: Labs appear relatively okay however he appears severely and critically ill. He has gurgling respirations and congestion. Continues to spike high fever. As oxygenation is holding steady would like to continue IV fluids. Continue IV antibiotics and Tamiflu. Tylenol and ibuprofen for fevers (2) Influenza A Acute J10.1 - FLU DUE TO OTH IDENT INFLUENZA VIRUS W OTH RESP MANIFEST Comment/Plan: Severely ill. Continue Tamiflu, IV fluids and supportive care (3) Right lower lobe pneumonia Acute J18.1 - LOBAR PNEUMONIA, UNSPECIFIED ORGANISM Qualifiers: Pneumonia type: due to influenza A virus Qualified Code(s): J11.00 - Influenza due to unidentified influenza virus with unspecified type of pneumonia Comment/Plan: Given the severity of his respiratory distress and congestion on exam will continue IV antibiotics and pulmonary toilet. As above remains acutely and critically ill (4) Hypokalemia Acute E87.6 - HYPOKALEMIA Comment/Plan: Continue to replete as needed (5) Hypoxemia Acute R09.02 - HYPOXEMIA Comment/Plan: Severely congested sound on exam however oxygenation remains stable Case Care Discussed with: Patient, Nursing Staff, Physical Therapy, Resource Management, Respiratory Therapy, Addiction Specialist Total Time: 1 hour Critical Care: Yes
[2016-10-02] MEDS: CEFTRIAXONE 1 GM in D5W 100 ML IV SCH (21:13)
[2016-10-02] MEDS: ZOLPIDEM TARTRATE 5 MG TAB PO SCH (21:14)
[2016-10-02] MEDS: IBUPROFEN INTRAVENOUS 400 MG in NS 100 ML IV PRN (21:28)
--- NOTE | 2016-10-03 01:13 | DIRPT ---
CLINICAL DATA: Congestion and pneumonia. EXAM: PORTABLE CHEST 1 VIEW COMPARISON: Two days ago FINDINGS: Background of hyperinflation. A right infrahilar opacity with mild diaphragm elevation is unchanged. There is also indistinct retrocardiac opacity without specific feature. No edema, effusion, or pneumothorax. No cardiomegaly for technique. Stable aortic and hilar contours. IMPRESSION: 1. Basilar lung opacities which could reflect pneumonia or atelectasis. 2. Possible COPD. Electronically Signed By: Deacon Hankins M.D. On: 10/03/2016 01:11
[2016-10-03] MEDS: NS 1,000 ML IV SCH ×3 (03:45→22:00)
[2016-10-03] MEDS: PREGABALIN 50 MG CAP PO SCH ×3 (03:48→19:46)
[2016-10-03 04:57] LABS: ALLEN'S TEST PASS; BEb -0.8 (+/- 2); TCO2 26.3 MMOL/L (23-27)
[2016-10-03] MEDS ORDERED: ALBUTEROL 0.083% 3 ML NEB NEB PRN (05:01)
[2016-10-03 05:14] LABS: ABG Draw Site Left Radial
[2016-10-03] MEDS ORDERED: NS 1,000 ML IV ONE (05:50)
[2016-10-03 05:51] LABS: AUTOMATED BASOPHIL 0.4 % (0-2); AUTOMATED LYMPH 13.3 % (17-44); AUTOMATED MONOCYTE 4.8 % (3-10); AUTOMATED NEUTROPHIL 81.5 % (45-76); MPV 8.9 fL (7.4-10.4)
[2016-10-03 06:24] LABS: BLOOD UREA NITROGEN 13 MG/DL (9-20); CALC CORRECTED 9.1 MG/DL (8.4-10.2); CALCIUM 7.9 MG/DL (8.4-10.2); CALCULATED OSMOLALITY 266 MOs/Kg (270-290); CHLORIDE 103 mEq/L (98-107); GLUCOSE 68 MG/DL (70-99); SODIUM LEVEL 139 mEq/L (137-146); TOTAL PROTEIN 5.2 G/DL (6.3-8.2)
[2016-10-03] MEDS ORDERED: PREGABALIN 50 MG CAP PO SCH (09:00)
[2016-10-03] MEDS: PREDNISONE 5 MG TAB PO SCH (10:11)
[2016-10-03] MEDS: FUROSEMIDE 40 MG TAB PO SCH (10:12)
[2016-10-03] MEDS: OSELTAMIVIR PHOSPHATE 75 MG CAP PO SCH ×2 (10:12→19:47)
[2016-10-03] MEDS: METOPROLOL (TOPROL-XL) 25 MG TAB PO SCH (10:16)
[2016-10-03] MEDS: ACETAMINOPHEN 325 MG/TAB TABLET PO PRN (10:45)
[2016-10-03] MEDS: IBUPROFEN INTRAVENOUS 400 MG in NS 100 ML IV PRN (12:54)
--- NOTE | 2016-10-03 16:24 | GENMEDPROG ---
Chief Complaint: Remains acutely ill. Severely congested and short of breath on Venti mask. Less fever Notes Reviewed: Yes: Events from last night noted and discussed with Clinical Staff Current Medication List: Reviewed Currently: Reports: Cough, Wheezing, NOLAN, SOB, Sputum, Abdominal Pain, Chest Pain. Denies: Nausea and Vomiting - Physical Examination Vital Signs and I&O: Last Vital Signs Temp 97.7 F 10/03/16 13:54 Pulse 110 10/03/16 12:13 Resp 20 10/03/16 11:36 BP 157/85 10/03/16 11:36 Pulse Ox 96 10/03/16 11:36 Oxygen Pulse Oxygen Saturation 96 O2 Device Venturi Mask Oxygen Flow Rate 2 Fraction of Inspired Oxygen ( 55 FIO2) Intake & Output 09/30/16 10/01/16 10/02/16 10/03/16 23:59 23:59 23:59 23:59 Intake Total 5021 2738 Output Total 900 1400 Balance 4121 1338 Patient's weight 82.236 kg 81.647 kg General: Alert, Oriented x3, Cooperative, Severe distress. negative: Well appearing (Diaphoretic and acutely ill-appearing) HEENT: Normal, PERRLA, EOMI, Anicteric Sclera Neck: Non-tender, Full range of motion, Normal Trachea alignment, Normal inspection. negative: JVD Lymphatics: Normal (no adenopathy) Respiratory: Rhonchi. negative: Accessory Muscle Use, Retractions Cardiovascular: No Gallops,Rubs/Murmurs. negative: Regular rate and rhythm ( Tachycardic) GI: Normal bowel sounds, Soft, Non tender, No hepatospenomegaly Extremities/Musculoskeletal: Normal pulses. negative: Tenderness, Swelling, Edema Skin: Warm,Dry and Intact. negative: No rashes, No breakdown, No significant lesion Neurological: Normal speech, Strength at 5/5 X4 ext, Normal tone, Cranial nerves 3-12 NL Psych/Mental Status: Appropriate, Normal Affect, Cooperative Lab/DI/Studies Reviewed: Laboratory Results - last 24 hr 10/02/16 10/03/16 10/03/16 22:00 04:50 04:55 WBC RBC Hgb Hct MCV MCH MCHC RDW Plt Count MPV Neut % (Auto) Lymph % (Auto) [place] % (Auto) Eos % (Auto) Baso % (Auto) Absolute Neuts (auto) Absolute Lymphs (auto) Puncture Site Left radial pH 7.360 pCO2 44.0 pO2 63.0 L HCO3 24.9 Total CO2 26.3 Base Excess -0.8 FiO2 % 2l nc Specimen Drawn By Baras Sodium 139 Potassium 4.0 Chloride 103 Carbon Dioxide 28 Anion Gap 12 BUN 13 Creatinine 0.80 Estimated GFR (MDRD) > 60 Glucose 68 L Calculated Osmolality 266 L Lactic Acid 1.1 Calcium 7.9 L Corrected Calcium 9.1 Total Bilirubin 1.3 AST 35 ALT 36 Alkaline Phosphatase 62 Total Protein 5.2 L Albumin 2.8 L 10/03/16 04:55 WBC 9.0 RBC 4.69 L Hgb 13.2 L Hct 39.9 L MCV 85 MCH 28.2 MCHC 33.1 RDW 13.9 Plt Count 89 L MPV 8.9 Neut % (Auto) 81.5 H Lymph % (Auto) 13.3 L [place] % (Auto) 4.8 Eos % (Auto) 0.0 Baso % (Auto) 0.4 Absolute Neuts (auto) 7.29 Absolute Lymphs (auto) 1.17 Puncture Site pH pCO2 pO2 HCO3 Total CO2 Base Excess FiO2 % Specimen Drawn By Sodium Potassium Chloride Carbon Dioxide Anion Gap BUN Creatinine Estimated GFR (MDRD) Glucose Calculated Osmolality Lactic Acid Calcium Corrected Calcium Total Bilirubin AST ALT Alkaline Phosphatase Total Protein Albumin - Assessment (1) Sepsis Acute A41.9 - SEPSIS, UNSPECIFIED ORGANISM Qualifiers: Sepsis type: sepsis due to unspecified organism Qualified Code(s): A41.9 - Sepsis, unspecified organism Comment/Plan: Labs relatively stable however he remains severely and critically ill-appearing. Remains febrile tachycardic and acutely ill. He has gurgling respirations and congestion. Continues to spike high fever. As oxygenation is holding steady would like to continue IV fluids. Continue IV antibiotics and Tamiflu. Tylenol and ibuprofen for fevers (2) Influenza A Acute J10.1 - FLU DUE TO OTH IDENT INFLUENZA VIRUS W OTH RESP MANIFEST Comment/Plan: Severely ill. Gurgling respirations. Continue Tamiflu, IV fluids and supportive care (3) Right lower lobe pneumonia Acute J18.1 - LOBAR PNEUMONIA, UNSPECIFIED ORGANISM Qualifiers: Pneumonia type: due to influenza A virus Qualified Code(s): J11.00 - Influenza due to unidentified influenza virus with unspecified type of pneumonia Comment/Plan: Given the severity of his respiratory distress and congestion on exam will continue IV antibiotics and pulmonary toilet. As above remains acutely and critically ill (4) Hypokalemia Acute E87.6 - HYPOKALEMIA Comment/Plan: Continue to replete as needed (5) Hypoxemia Acute R09.02 - HYPOXEMIA Comment/Plan: Severely congested sounding on exam however oxygenation remains stable Case Care Discussed with: Patient, Family, Nursing Staff, Resource Management, Respiratory Therapy Total Time: 45 minutes Critical Care: Yes
[2016-10-03] MEDS: ENOXAPARIN 40 MG/0.4 ML PFS SQ SCH (17:36)
[2016-10-03] MEDS: ZOLPIDEM TARTRATE 5 MG TAB PO SCH (19:46)
[2016-10-03] MEDS: CEFTRIAXONE 1 GM in D5W 100 ML IV SCH (19:47)
[2016-10-03] MEDS: MELOXICAM 7.5 MG TAB PO SCH (19:47)
[2016-10-03] MEDS: NORTRIPTYLINE HCL 25 MG CAP PO SCH (19:47)
[2016-10-03] MEDS: DONEPEZIL HCL 10 MG TAB PO SCH (19:47)
[2016-10-03] MEDS: ATORVASTATIN 20 MG TAB PO SCH (19:47)
[2016-10-03] MEDS: AZITHROMYCIN 500 MG in D5W 250 ML IV SCH (22:00)
[2016-10-04 05:08] LABS: ALLEN'S TEST PASS; BEb 3.2 (+/- 2); TCO2 29.2 MMOL/L (23-27)
[2016-10-04 05:10] LABS: ABG Draw Site Left Radial
[2016-10-04 05:23] LABS: AUTOMATED BASOPHIL 0.2 % (0-2); AUTOMATED LYMPH 17.3 % (17-44); AUTOMATED MONOCYTE 5.3 % (3-10); AUTOMATED NEUTROPHIL 77.2 % (45-76)
[2016-10-04] MEDS: PREGABALIN 50 MG CAP PO SCH ×3 (05:41→20:52)
[2016-10-04 05:43] LABS: BLOOD UREA NITROGEN 12 MG/DL (9-20); CALCIUM 7.4 MG/DL (8.4-10.2); CALCULATED OSMOLALITY 266 MOs/Kg (270-290); CHLORIDE 104 mEq/L (98-107); GLUCOSE 68 mg/dL (70-99); SODIUM LEVEL 139 mEq/L (137-146)
[2016-10-04] MEDS: NS 1,000 ML IV SCH ×2 (08:09→18:08)
[2016-10-04] MEDS: PREDNISONE 5 MG TAB PO SCH (08:36)
[2016-10-04] MEDS: FUROSEMIDE 40 MG TAB PO SCH (08:36)
[2016-10-04] MEDS: METOPROLOL (TOPROL-XL) 25 MG TAB PO SCH (08:36)
[2016-10-04] MEDS: OSELTAMIVIR PHOSPHATE 75 MG CAP PO SCH ×2 (08:37→20:52)
[2016-10-04] MEDS: ACETAMINOPHEN 325 MG/TAB TABLET PO PRN (08:37)
[2016-10-04] MEDS ORDERED: VARIBAR HONEY 40% BARIUM 250 ML ONE (09:55)
[2016-10-04] MEDS ORDERED: VARIBAR NECTAR 40% BARIUM 240 ML ONE (09:55)
[2016-10-04] MEDS ORDERED: VARIBAR THIN 40% BARIUM 250 ML ONE (09:55)
[2016-10-04] MEDS: ENOXAPARIN 40 MG/0.4 ML PFS SQ SCH (18:09)
--- NOTE | 2016-10-04 20:37 | GENMEDPROG ---
Chief Complaint: Complains of intermittent cough and generalized weakness. Notes Reviewed: Yes: Events from last night noted and discussed with Clinical Staff Current Medication List: Reviewed Currently: Reports: Cough, Wheezing, NOLAN, SOB, Sputum, Abdominal Pain, Chest Pain. Denies: Nausea and Vomiting DVT Prophylaxis: Yes - Physical Examination Vital Signs and I&O: Last Vital Signs Temp 98.8 F 10/04/16 19:45 Pulse 88 10/04/16 19:45 Resp 18 10/04/16 19:45 BP 146/70 10/04/16 19:45 Pulse Ox 96 10/04/16 20:00 Oxygen Pulse Oxygen Saturation 96 O2 Device Nasal Cannula Oxygen Flow Rate 3 Fraction of Inspired Oxygen ( 55 FIO2) Intake & Output 10/01/16 10/02/16 10/03/16 10/04/16 23:59 23:59 23:59 23:59 Intake Total 5021 4505 3289 Output Total 900 2100 1450 Balance 4121 2405 1839 Patient's weight 82.236 kg 81.647 kg 84.17 kg General: Alert, Oriented x3, Cooperative, Severe distress. negative: Well appearing (Diaphoretic and acutely ill-appearing) HEENT: Normal, PERRLA, EOMI, Anicteric Sclera Neck: Non-tender, Full range of motion, Normal Trachea alignment, Normal inspection. negative: JVD Lymphatics: Normal (no adenopathy) Respiratory: Rhonchi. negative: Accessory Muscle Use, Retractions Cardiovascular: No Gallops,Rubs/Murmurs. negative: Regular rate and rhythm ( Tachycardic) GI: Normal bowel sounds, Soft, Non tender, No hepatospenomegaly Extremities/Musculoskeletal: Normal pulses. negative: Tenderness, Swelling, Edema Skin: Warm,Dry and Intact. negative: No rashes, No breakdown, No significant lesion Neurological: Normal speech, Strength at 5/5 X4 ext, Normal tone, Cranial nerves 3-12 NL Psych/Mental Status: Appropriate, Normal Affect, Cooperative Lab/DI/Studies Reviewed: 10/04/16 04:15 10/04/16 04:15 Laboratory Results - last 24 hr 10/04/16 10/04/16 10/04/16 04:15 04:15 05:00 WBC 5.3 RBC 4.15 L Hgb 11.8 L D Hct 35.1 L MCV 85 MCH 28.5 MCHC 33.7 RDW 13.4 Plt Count 80 L MPV 9.0 Neut % (Auto) 77.2 H Lymph % (Auto) 17.3 [place] % (Auto) 5.3 Eos % (Auto) 0.0 Baso % (Auto) 0.2 Absolute Neuts (auto) 4.08 Absolute Lymphs (auto) 0.90 Puncture Site Left radial pH 7.430 pCO2 42.0 pO2 200.0 H HCO3 27.9 H Total CO2 29.2 H Base Excess 3.2 H Vent Mode Bipap 12/6 FiO2 % 60 Specimen Drawn By Rakma Sodium 139 Potassium 3.3 L Chloride 104 Carbon Dioxide 30 Anion Gap 8 BUN 12 Creatinine 0.60 L Estimated GFR (MDRD) > 60 Glucose 68 L Calculated Osmolality 266 L Calcium 7.4 L - Assessment (1) Right lower lobe pneumonia Acute J18.1 - LOBAR PNEUMONIA, UNSPECIFIED ORGANISM Qualifiers: Pneumonia type: due to influenza A virus Qualified Code(s): J11.00 - Influenza due to unidentified influenza virus with unspecified type of pneumonia Comment/Plan: Given the severity of his respiratory distress and congestion on exam will continue IV antibiotics and pulmonary toilet. 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 (5) Dysphagia Acute R13.10 - DYSPHAGIA, UNSPECIFIED Qualifiers: Dysphagia type: oropharyngeal phase Qualified Code(s): R13.12 - Dysphagia, oropharyngeal phase Comment/Plan: He is placed on honey thick liquids and pureed solids. Case Care Discussed with: Patient, Nursing Staff, Resource Management Education/Counseling Given To: Patient, Family Member Education/Counseling Given Regarding: Diagnosis, Treatment Total Time: 36 min Critical Care: No Code: 94495 (12+)
[2016-10-04] MEDS: MELOXICAM 7.5 MG TAB PO SCH (20:51)
[2016-10-04] MEDS: ZOLPIDEM TARTRATE 5 MG TAB PO SCH (20:51)
[2016-10-04] MEDS: CEFTRIAXONE 1 GM in D5W 100 ML IV SCH (20:52)
[2016-10-04] MEDS: NORTRIPTYLINE HCL 25 MG CAP PO SCH (20:52)
[2016-10-04] MEDS: DONEPEZIL HCL 10 MG TAB PO SCH (20:52)
[2016-10-04] MEDS: ATORVASTATIN 20 MG TAB PO SCH (20:52)
[2016-10-04] MEDS: AZITHROMYCIN 500 MG in D5W 250 ML IV SCH (23:52)
[2016-10-05] MEDS: PROBIOTIC BLEND TAB PO SCH ×3 (01:09→16:33)
[2016-10-05 03:18] VITALS: BMI 25.4
[2016-10-05] MEDS: NS 1,000 ML IV SCH ×2 (04:26→14:13)
[2016-10-05] MEDS: PREGABALIN 50 MG CAP PO SCH ×3 (04:27→20:44)
--- NOTE | 2016-10-05 10:09 | GENMEDPROG ---
Chief Complaint: alert orient x date place Notes Reviewed: Yes: Events from last night noted and discussed with Clinical Staff Current Medication List: Reviewed Currently: Reports: Cough, Wheezing, NOLAN, SOB, Sputum, Abdominal Pain, Chest Pain. Denies: Nausea and Vomiting DVT Prophylaxis: Yes - Physical Examination Vital Signs and I&O: Last Vital Signs Temp 98.4 F 10/05/16 08:18 Pulse 73 10/05/16 08:18 Resp 18 10/05/16 08:18 BP 142/67 10/05/16 08:18 Pulse Ox 98 10/05/16 08:52 Oxygen Pulse Oxygen Saturation 98 O2 Device Nasal Cannula Oxygen Flow Rate 3 Fraction of Inspired Oxygen ( 55 FIO2) Intake & Output 10/02/16 10/03/16 10/04/16 10/05/16 23:59 23:59 23:59 23:59 Intake Total 5021 4505 3289 1699 Output Total 900 2100 1900 200 Balance 4121 2405 1389 1499 Patient's weight 82.236 kg 81.647 kg 84.17 kg 85.139 kg General: Alert, Oriented x3, Cooperative, Severe distress. negative: Well appearing (Diaphoretic and acutely ill-appearing) HEENT: Normal, PERRLA, EOMI, Anicteric Sclera Neck: Non-tender, Full range of motion, Normal Trachea alignment, Normal inspection. negative: JVD Lymphatics: Normal (no adenopathy) Respiratory: Rhonchi. negative: Accessory Muscle Use, Retractions Cardiovascular: No Gallops,Rubs/Murmurs. negative: Regular rate and rhythm ( Tachycardic) GI: Normal bowel sounds, Soft, Non tender, No hepatospenomegaly Extremities/Musculoskeletal: Normal pulses. negative: Tenderness, Swelling, Edema Skin: Warm,Dry and Intact. negative: No rashes, No breakdown, No significant lesion Neurological: Normal speech, Strength at 5/5 X4 ext, Normal tone, Cranial nerves 3-12 NL Psych/Mental Status: Appropriate, Normal Affect, Cooperative Lab/DI/Studies Reviewed: 10/04/16 04:15 10/04/16 04:15 - Assessment (1) Bilateral pneumonia Acute J18.9 - PNEUMONIA, UNSPECIFIED ORGANISM Qualifiers: Pneumonia type: due to unspecified organism Lung location: lower lobe of lung Qualified Code(s): J18.9 - Pneumonia, unspecified organism Comment/Plan: Getting Rocephin Zithromax. 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 (3) Hypertension Chronic I10 - ESSENTIAL (PRIMARY) HYPERTENSION Qualifiers: Hypertension type: essential hypertension Qualified Code(s): I10 - Essential (primary) hypertension Comment/Plan: Continue present medications (4) Weakness Acute R53.1 - WEAKNESS Comment/Plan: Physical therapy will be consulted for evaluation of ambulatory function. (5) Dysphagia Acute R13.10 - DYSPHAGIA, UNSPECIFIED Qualifiers: Dysphagia type: oropharyngeal phase Qualified Code(s): R13.12 - Dysphagia, oropharyngeal phase Comment/Plan: He is placed on nectar thick liquids and pureed solids. (6) Influenza A Acute J10.1 - FLU DUE TO OTH IDENT INFLUENZA VIRUS W OTH RESP MANIFEST Comment/Plan: Continue Tamiflu, IV fluids and supportive care in addition to the IV antibiotics for his bacterial pneumonia. Case Care Discussed with: Patient, Family, Nursing Staff, Resource Management Education/Counseling Given To: Patient, Family Member Education/Counseling Given Regarding: Diagnosis Total Time: 39 min Critical Care: No Code: 20724 (12+)
--- NOTE | 2016-10-05 10:23 | GENMEDPROG ---
Chief Complaint: sob a little better cough productive creamy phlegm Notes Reviewed: Yes: Events from last night noted and discussed with Clinical Staff Current Medication List: Reviewed Currently: Reports: Cough, Wheezing, NOLAN, SOB, Sputum, Abdominal Pain, Chest Pain. Denies: Nausea and Vomiting DVT Prophylaxis: Yes - Physical Examination Vital Signs and I&O: Last Vital Signs Temp 98.4 F 10/05/16 08:18 Pulse 73 10/05/16 08:18 Resp 18 10/05/16 08:18 BP 142/67 10/05/16 08:18 Pulse Ox 98 10/05/16 08:52 Oxygen Pulse Oxygen Saturation 98 O2 Device Nasal Cannula Oxygen Flow Rate 3 Fraction of Inspired Oxygen ( 55 FIO2) Intake & Output 10/02/16 10/03/16 10/04/16 10/05/16 23:59 23:59 23:59 23:59 Intake Total 5021 4505 3289 1699 Output Total 900 2100 1900 200 Balance 4121 2405 1389 1499 Patient's weight 82.236 kg 81.647 kg 84.17 kg 85.139 kg General: Alert, Oriented x3, Cooperative, Severe distress. negative: Well appearing (Diaphoretic and acutely ill-appearing) HEENT: Normal, PERRLA, EOMI, Anicteric Sclera Neck: Non-tender, Full range of motion, Normal Trachea alignment, Normal inspection. negative: JVD Lymphatics: Normal (no adenopathy) Respiratory: Rhonchi. negative: Accessory Muscle Use, Retractions Cardiovascular: No Gallops,Rubs/Murmurs. negative: Regular rate and rhythm ( Tachycardic) GI: Normal bowel sounds, Soft, Non tender, No hepatospenomegaly Extremities/Musculoskeletal: Normal pulses. negative: Tenderness, Swelling, Edema Skin: Warm,Dry and Intact. negative: No rashes, No breakdown, No significant lesion Neurological: Normal speech, Strength at 5/5 X4 ext, Normal tone, Cranial nerves 3-12 NL Psych/Mental Status: Appropriate, Normal Affect, Cooperative - Assessment (1) Right lower lobe pneumonia Acute J18.1 - LOBAR PNEUMONIA, UNSPECIFIED ORGANISM Qualifiers: Pneumonia type: due to influenza A virus Qualified Code(s): J11.00 - Influenza due to unidentified influenza virus with unspecified type of pneumonia Comment/Plan: continue IV antibiotics Rocephin & Zithromax w/ pulmonary toilet. 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 (5) Dysphagia Acute R13.10 - DYSPHAGIA, UNSPECIFIED Qualifiers: Dysphagia type: oropharyngeal phase Qualified Code(s): R13.12 - Dysphagia, oropharyngeal phase Comment/Plan: He is placed on nectar thick liquids and pureed solids.
[2016-10-05] MEDS: FUROSEMIDE 40 MG TAB PO SCH (10:53)
[2016-10-05] MEDS: PREDNISONE 5 MG TAB PO SCH (10:53)
[2016-10-05] MEDS: METOPROLOL (TOPROL-XL) 25 MG TAB PO SCH (10:54)
[2016-10-05] MEDS: OSELTAMIVIR PHOSPHATE 75 MG CAP PO SCH ×2 (10:54→20:46)
[2016-10-05 11:50] VITALS: TEMP 98.4
[2016-10-05] MEDS: POTASSIUM CHLORIDE 20 MEQ TAB PO SCH ×3 (13:25→16:33)
[2016-10-05] MEDS: FENTANYL 12 MCG PATCH TOP SCH (13:27)
[2016-10-05] MEDS: FENTANYL 25 MCG PATCH TOP SCH (13:27)
[2016-10-05] MEDS: BENZONATATE 100 MG PERLES PO SCH ×2 (14:41→20:46)
[2016-10-05] MEDS: ENOXAPARIN 40 MG/0.4 ML PFS SQ SCH (18:05)
[2016-10-05] MEDS: ZOLPIDEM TARTRATE 5 MG TAB PO SCH (20:43)
[2016-10-05] MEDS: ATORVASTATIN 20 MG TAB PO SCH (20:45)
[2016-10-05] MEDS: DONEPEZIL HCL 10 MG TAB PO SCH (20:45)
[2016-10-05] MEDS: MELOXICAM 7.5 MG TAB PO SCH (20:45)
[2016-10-05] MEDS: NORTRIPTYLINE HCL 25 MG CAP PO SCH (20:46)
[2016-10-05] MEDS: CEFTRIAXONE 1 GM in D5W 100 ML IV SCH (20:46)
[2016-10-05] MEDS ORDERED: TUSSIONEX 5 ML ORAL SYRINGE PO SCH (21:00)
[2016-10-06] MEDS: AZITHROMYCIN 500 MG in D5W 250 ML IV SCH (00:17)
[2016-10-06] MEDS: NS 1,000 ML IV SCH ×2 (00:35→08:40)
--- NOTE | 2016-10-06 03:35 | HIMCONS ---
DATE OF CONSULT: REQUESTING PHYSICIAN: Gunner Funk M.D. REASON FOR CONSULTATION: Respiratory failure. HISTORY OF PRESENT ILLNESS: This patient is an 86-year-old male, well known to me from previous office and hospital visits. Apparently, the patient has history of significant COPD and was seen not too long ago in my office in [facility]. However, the patient got worse for the past few days with shortness of breath, coughing, wheezing, tightness in his chest, and some fevers and chills, generalized muscle aches, and nausea. The patient stated that his has been sick as well. Currently, when he was placed in the hospital and placed on antibiotics, the patient has been feeling somewhat better. PAST MEDICAL HISTORY: Significant for hypertension, cardiomyopathy ejection of 43%, history of COPD, PE, arthritis, dementia, depression, and anxiety. SURGICAL HISTORY: Significant for cardiac catheterization, hernia surgery, tonsillectomy, and adenoidectomy. MEDICATIONS: In the chart were noted. ALLERGIES: NO KNOWN DRUG ALLERGIES. FAMILY HISTORY: Significant for mother having diabetes and brain tumor. SOCIAL HISTORY: The patient has no history of smoking, drinking, or drug abuse. REVIEW OF SYSTEMS: Review of systems is negative except for as mentioned in the history of present illness. PHYSICAL EXAMINATION: VITAL SIGNS: Temperature is 97.9 degrees Fahrenheit, pulse is 67, respiratory rate 20, blood pressure is 133/72, pulse ox 96% on 2 L nasal cannula. CHEST: Clear to auscultation with decreased bilateral air entry. HEART: S1, S2. Regular. No murmur. EXTREMITIES: No clubbing, cyanosis, or edema. ABDOMEN: Soft and nontender. Bowel sounds present. Hepatosplenomegaly is absent. NEURO: The patient is moving all extremities. LABS: Labs from yesterday show white count 5.3, hemoglobin is 11.8, hematocrit 35.1, and platelets are 80. Blood gas showed a pH of 7.43, pCO2 of 42, PO2 was 200, and BiPAP 12/6 on 60% oxygen. Sodium 139, potassium 3.3, chloride 104, CO2 30, BUN is 12, creatinine 0.6, and glucose is 68. IMAGING REPORTS: Chest x-ray was seen personally. The patient seems to have hyperinflated lung castelan with bibasilar atelectasis left more than right. IMPRESSION: 1. [id number] respiratory failure. 2. Asthma with exacerbation. 3. Right lower lobe infiltrate, possible pneumonia. 4. Influenza. PLAN: The patient was put on Tamiflu on admission along with continued albuterol inhaler, Zithromax, and Rocephin. He has not been on steroids and has been using Lasix 40 mg p.o. daily. I think the patient is moving slowly and I think he would be able to go home soon. We would follow the patient closely. The patient's is also sick and my nurse practitioner did call her to talk to her, she seems to be improving slowly. Thank you very much for the consultation. I will follow the patient with you. [id number]
[2016-10-06] MEDS: BENZONATATE 100 MG PERLES PO SCH (05:00)
[2016-10-06] MEDS: PREGABALIN 50 MG CAP PO SCH (05:00)
[2016-10-06 07:17] LABS: BLOOD UREA NITROGEN 12 MG/DL (9-20); CALCIUM 7.4 MG/DL (8.4-10.2); CALCULATED OSMOLALITY 267 MOs/Kg (270-290); CHLORIDE 104 mEq/L (98-107); GLUCOSE 79 mg/dL (70-99); SODIUM LEVEL 139 mEq/L (137-146)
[2016-10-06 07:23] LABS: AUTOMATED BASOPHIL 0.4 % (0-2); AUTOMATED EOSINOPHIL 2.1 % (0-5); AUTOMATED LYMPH 41.6 % (17-44); AUTOMATED MONOCYTE 7.5 % (3-10); AUTOMATED NEUTROPHIL 48.4 % (45-76); MPV 8.7 fL (7.4-10.4)
--- NOTE | 2016-10-06 08:11 | PCM.PULM ---
Chief Complaint: Respiratory failure Influenza A Asthma exacerbation Pneumonia Uneventful overnight Patient in bed alert and responsive feeling fair this morning. Breathing has improved. Still coughing with moderate amount of sputum. NO chest pain,fever, chills or nausea noted Medication list reviewed:yes Notes reviewed:yes, Events from last night noted and discussed with Clinical Staff - Physical Examination Vital Signs and I&O: Last Vital Signs Temp 97.6 F 10/06/16 07:59 Pulse 53 L 10/06/16 07:59 Resp 20 10/06/16 07:59 BP 120/61 10/06/16 07:59 Pulse Ox 99 10/06/16 07:59 Oxygen Pulse Oxygen Saturation 99 O2 Device Nasal Cannula Oxygen Flow Rate 2 Fraction of Inspired Oxygen ( 55 FIO2) Intake & Output 10/03/16 10/04/16 10/05/16 10/06/16 23:59 23:59 23:59 23:59 Intake Total 4505 3289 3856 1524 Output Total 2100 1900 2100 150 Balance 2405 1389 1756 1374 Patient's weight 81.647 kg 84.17 kg 85.139 kg 85.82 kg General: Alert, Oriented x3, Cooperative, No acute distress, Fatigue Respiratory: Normal - CTA, Diminished Cardiovascular: Regular rate, Regular rate and rhythm, Normal S1, No Gallops, Rubs/Murmurs, Normal S2 GI: Normal bowel sounds, Soft, Non tender, No hepatospenomegaly, No masses Extremities/Musculoskeletal: Normal pulses Skin: Warm,Dry and Intact, No rashes, No breakdown, No significant lesion Neurological: Normal Steady Gait, Strength at 5/5 X4 ext, Normal tone, Cranial nerves 3-12 NL Psych/Mental Status: Appropriate Result Diagrams: 10/06/16 06:05 10/06/16 06:05 Labs (last 24 hours): Laboratory Results - last 24 hr 10/06/16 10/06/16 06:05 06:05 WBC 2.7 L RBC 3.89 L Hgb 10.8 L Hct 32.3 L MCV 83 MCH 27.9 MCHC 33.6 RDW 13.4 Plt Count 79 L MPV 8.7 Neut % (Auto) 48.4 Lymph % (Auto) 41.6 [place] % (Auto) 7.5 Eos % (Auto) 2.1 Baso % (Auto) 0.4 Absolute Neuts (auto) 1.30 L Absolute Lymphs (auto) 1.11 Sodium 139 Potassium 3.7 Chloride 104 Carbon Dioxide 31 Anion Gap 8 BUN 12 Creatinine 0.60 L Estimated GFR (MDRD) > 60 Glucose 79 Calculated Osmolality 267 L Calcium 7.4 L Lab/DI/Studies Reviewed: EKG: NSR, NO ST or ST wave changes noted Medications Acetaminophen (Tylenol Tablet) 650 mg PO Q6H PRN; Protocol PRN Reason: Mild Pain or Fever above 100.4 Stop: 10/15/16 16:59 Last Admin: 10/04/16 08:37 Dose: 650 mg Ceftriaxone Sodium 1 gm/ (Dextrose) 100 mls @ 100 mls/hr IV Q24H [facility] Stop: 10/09/16 21:59 Last Admin: 10/05/16 20:46 Dose: 100 mls/hr Clonazepam (Klonopin) 1 mg PO QHS [facility] Stop: 10/16/16 20:59 Last Admin: 10/05/16 20:44 Dose: 1 mg Donepezil HCl (Aricept) 10 mg PO QHS [facility] Stop: 10/15/16 23:44 Last Admin: 10/05/16 20:45 Dose: 10 mg Enoxaparin Sodium (Lovenox) 40 mg SQ 1800 [facility] Stop: 10/15/16 23:44 Last Admin: 10/05/16 18:05 Dose: 40 mg Fentanyl (Duragesic) 12 mcg TOP Q72H [facility] Stop: 10/16/16 12:59 Last Admin: 10/05/16 13:27 Dose: 12 mcg Fentanyl (Duragesic) 25 mcg TOP Q72H [facility] Stop: 10/16/16 12:59 Last Admin: 10/05/16 13:27 Dose: 25 mcg Albuterol (Proventil, Ventolin) 3 ml NEB Q2H PRN PRN Reason: Wheezing Stop: 10/17/16 05:00 Atorvastatin Calcium (Lipitor) 20 mg PO HS [facility] Stop: 10/15/16 23:44 Last Admin: 10/05/16 20:45 Dose: 20 mg Azithromycin 500 mg/ Dextrose 250 mls @ 250 mls/hr IV Q24H [facility] Stop: 10/07/16 00:00 Last Admin: 10/06/16 00:17 Dose: 250 mls/hr Benzonatate (Tessalon) 200 mg PO TID [facility] Stop: 10/19/16 16:59 Last Admin: 10/06/16 05:00 Dose: 200 mg Furosemide (Lasix) 40 mg PO DAILY [facility] Stop: 10/16/16 08:59 Last Admin: 10/06/16 08:44 Dose: 40 mg Guaifenesin/Dextromethorphan (Robitussin Dm) 10 ml PO Q6H PRN PRN Reason: Cough - Alternative Stop: 10/15/16 16:59 Last Admin: 10/02/16 06:06 Dose: 10 ml Ibuprofen 400 mg/ Sodium (Chloride) 104 mls @ 200 mls/hr IV Q6H PRN PRN Reason: Fever/Pain No PO/Ineffective Stop: 10/16/16 16:59 Last Admin: 10/03/16 12:54 Dose: 200 mls/hr Lact Acid/Bifidobact/Lact [place]/Streptoc Th (Emilia Q) 1 tab PO BIDLS [facility] Stop: 10/19/16 00:59 Last Admin: 10/06/16 08:45 Dose: 1 tab Metoprolol Succinate (Toprol Xl) 25 mg PO DAILY [facility] Stop: 10/16/16 08:59 Last Admin: 10/06/16 08:44 Dose: 25 mg Nitroglycerin (Ntg (Nitrostat Sublingual Tab)) 0.4 mg SL PRN PRN PRN Reason: Chest Pain or Discomfort Stop: 10/15/16 23:03 Oseltamivir Phosphate (Tamiflu) 75 mg PO BID [facility] Stop: 10/06/16 21:01 Last Admin: 10/06/16 08:43 Dose: 75 mg Prednisone (Deltasone, Orasone) 5 mg PO DAILY [facility] Stop: 10/16/16 08:59 Last Admin: 10/06/16 08:44 Dose: 5 mg Pregabalin (Lyrica) 150 mg PO QHS [facility] Stop: 10/16/16 20:59 Last Admin: 10/05/16 20:44 Dose: 150 mg Sodium Chloride (Normal Saline) 1,000 mls @ 125 mls/hr IV Q24H [facility] Stop: 10/16/16 03:59 Last Admin: 10/06/16 08:40 Dose: 125 mls/hr Zolpidem Tartrate (Ambien) 10 mg PO HS [facility] Stop: 10/16/16 20:59 Last Admin: 10/05/16 20:43 Dose: 10 mg - Assessment/Plan (1) Asthma exacerbation Acute J45.901 - UNSPECIFIED ASTHMA WITH (ACUTE) EXACERBATION Comment/Plan: patient breathing is improving some what. Would continue nebulizer treatment, Antibiotics, prednisone po, GI/DVT prophylaxis and full supportive care (2) Bilateral pneumonia Acute J18.9 - PNEUMONIA, UNSPECIFIED ORGANISM due to unspecified organism lower lobe of lung J18.9 - Pneumonia, unspecified organism Comment/Plan: Improving. Would continue IV antibiotics (3) Influenza A Acute J10.1 - FLU DUE TO OTH IDENT INFLUENZA VIRUS W OTH RESP MANIFEST Comment/Plan: Improving. Continue tamiflu and hydration
[2016-10-06] MEDS: OSELTAMIVIR PHOSPHATE 75 MG CAP PO SCH (08:43)
[2016-10-06] MEDS: PREDNISONE 5 MG TAB PO SCH (08:44)
[2016-10-06] MEDS: METOPROLOL (TOPROL-XL) 25 MG TAB PO SCH (08:44)
[2016-10-06] MEDS: FUROSEMIDE 40 MG TAB PO SCH (08:44)
[2016-10-06] MEDS: PROBIOTIC BLEND TAB PO SCH (08:45)
[2016-10-06 11:09] VITALS: BP 116/62; TEMP 97.4
--- NOTE | 2016-10-06 11:57 | PCM.DCS92 ---
- Final/Secondary Discharge Diagnosis (1) Bilateral pneumonia Acute J18.9 - PNEUMONIA, UNSPECIFIED ORGANISM Present on Admission: Yes due to unspecified organism lower lobe of lung J18.9 - Pneumonia, unspecified organism Comment: Getting Rocephin Zithromax. 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 (3) Hypertension Chronic I10 - ESSENTIAL (PRIMARY) HYPERTENSION Present on Admission: Yes essential hypertension I10 - Essential (primary) hypertension Comment: Continue present medications (4) Weakness Acute R53.1 - WEAKNESS Present on Admission: Yes Comment: Physical therapy will be consulted for evaluation of ambulatory function. (5) Dysphagia Acute R13.10 - DYSPHAGIA, UNSPECIFIED Present on Admission: Yes oropharyngeal phase R13.12 - Dysphagia, oropharyngeal phase Comment: He is placed on nectar thick liquids and pureed solids. (6) Influenza A Acute J10.1 - FLU DUE TO OTH IDENT INFLUENZA VIRUS W OTH RESP MANIFEST Present on Admission: Yes Comment: Continue Tamiflu, IV fluids and supportive care in addition to the IV antibiotics for his bacterial pneumonia. Discharge Disposition: Assisted Facility Discharge Condition: Improved Cognitive Discharge Status: Cognitive deficits prevent decision making for safety. Fuctional Discharge Status: Walker Assistance Physician Follow up/Referrals: Corry Julian NP [Primary Care Provider] - One Month Patricio Shah MD [Staff Physician] - 1-2 Days Home Medications / New Prescriptions: New Albuterol Sulfate [Ventolin] 3 ml NEB Q2H PRN #60 nebu PRN Reason: Wheezing Azithromycin [Zithromax Tri-Perez] 500 mg PO DAILY #3 tablet Ceftriaxone [Rocephin] 1 gm IV Q24H #3 vial Probiotic Blend [Emilia Q] 1 tab PO BIDLS #30 tablet Continue Nortriptyline HCl 75 mg PO QHS Donepezil HCl [Aricept] 10 mg PO QHS Meloxicam 15 mg PO QHS Prednisone [Deltasone, Orasone] 5 mg PO DAILY Nitroglycerin Sublingual Tab [NTG (NitroStat Sublingual Tab)] 0.4 mg SL PRN PRN #30 tablet PRN Reason: Chest Pain Or Discomfort Aspirin (Enteric Coated) [Halfprin] 81 mg PO DAILY Metoprolol Succinate (XL) [Toprol Xl] 25 mg PO DAILY Furosemide [Lasix] 40 mg PO DAILY Atorvastatin Calcium [Lipitor] 20 mg PO HS Clonazepam 1 mg PO QHS #30 tablet Fentanyl [Duragesic 12 mcg/hr patch] 12 mcg TOP Q72H #30 patch Fentanyl [Duragesic 25 mcg/hr patch] 25 mcg TOP Q72H #30 patch Pregabalin [Lyrica] 50 mg PO BID #60 capsule Pregabalin [Lyrica] 150 mg PO QHS #30 capsule Zolpidem Tartrate [Ambien] 10 mg PO HS #30 tablet Discharge Home Medication List Donepezil HCl [Aricept] 10 mg PO QHS 08/25/13 [History Confirmed 10/01/16 Last Taken 09/30/16] Nortriptyline HCl 75 mg PO QHS 08/25/13 [History Confirmed 10/01/16 Last Taken 09/30/16] Meloxicam 15 mg PO QHS 08/31/15 [History Confirmed 10/01/16 Last Taken 09/30/16] Prednisone [Deltasone, Orasone] 5 mg PO DAILY 08/31/15 [History Confirmed Last Taken 10/01/16] Nitroglycerin Sublingual Tab [NTG (NitroStat Sublingual Tab)] 0.4 mg SL PRN PRN #30 tablet 09/01/15 [Rx Confirmed 10/01/16 Last Taken Unknown] Aspirin (Enteric Coated) [Halfprin] 81 mg PO DAILY 09/03/15 [History Confirmed 10/01/16 Last Taken 10/01/16] Metoprolol Succinate (XL) [Toprol Xl] 25 mg PO DAILY 09/03/15 [History Confirmed 10/01/16 Last Taken 10/01/16] Atorvastatin Calcium [Lipitor] 20 mg PO HS 10/01/16 [History Confirmed 10/01/16 Last Taken 09/30/16] Furosemide [Lasix] 40 mg PO DAILY 10/01/16 [History Confirmed 10/01/16 Last Taken 10/01/16] Albuterol Sulfate [Ventolin] 3 ml NEB Q2H PRN #60 nebu 10/06/16 [Rx Last Taken Unknown] Azithromycin [Zithromax Tri-Perez] 500 mg PO DAILY #3 tablet 10/06/16 [Rx Last Taken Unknown] Ceftriaxone [Rocephin] 1 gm IV Q24H #3 vial 10/06/16 [Rx Last Taken Unknown] Clonazepam 1 mg PO QHS #30 tablet 10/06/16 [Rx Last Taken Unknown] Fentanyl [Duragesic 12 mcg/hr patch] 12 mcg TOP Q72H #30 patch 10/06/16 [Rx Last Taken Unknown] Fentanyl [Duragesic 25 mcg/hr patch] 25 mcg TOP Q72H #30 patch 10/06/16 [Rx Last Taken Unknown] Pregabalin [Lyrica] 50 mg PO BID #60 capsule 10/06/16 [Rx Last Taken Unknown] Pregabalin [Lyrica] 150 mg PO QHS #30 capsule 10/06/16 [Rx Last Taken Unknown] Probiotic Blend [Emilia Q] 1 tab PO BIDLS #30 tablet 10/06/16 [Rx Last Taken Unknown] Zolpidem Tartrate [Ambien] 10 mg PO HS #30 tablet 10/06/16 [Rx Last Taken Unknown] 10/06/16 06:05 10/06/16 06:05 Laboratory Results - last 24 hr 10/06/16 10/06/16 06:05 06:05 WBC 2.7 L RBC 3.89 L Hgb 10.8 L Hct 32.3 L MCV 83 MCH 27.9 MCHC 33.6 RDW 13.4 Plt Count 79 L MPV 8.7 Neut % (Auto) 48.4 Lymph % (Auto) 41.6 [place] % (Auto) 7.5 Eos % (Auto) 2.1 Baso % (Auto) 0.4 Absolute Neuts (auto) 1.30 L Absolute Lymphs (auto) 1.11 Sodium 139 Potassium 3.7 Chloride 104 Carbon Dioxide 31 Anion Gap 8 BUN 12 Creatinine 0.60 L Estimated GFR (MDRD) > 60 Glucose 79 Calculated Osmolality 267 L Calcium 7.4 L O2 Device: Room Air Diet at Discharge: As Tolerated Activity: As Tolerated - DC Summary Notes HPI/Notes: PRIMARY CARE PROVIDER: Corry Julian HPI: The patient is an 86 yo man who presents with shortness of breath and feeling bad all over. Onset: over last few days. Duration: intermittent. Character: difficulty getting a good breath. Alleviated by: Nothing. Exacerbated by: exertion. Associated Symptoms: No chest pain or palpitations. Coughing and shortness of breath. No wheezing. Fever and chills. Generalized muscle aches and joint aches. Nausea. Treatments: none at home except usual medications. Hospital Course Note:: Discharge summary on patient named DANE REYNOSO admitted to [facility] on 10/01/16 by Vikas Garay MD. Date of discharge is 10/06/2016. He was admitted with pneumonia related to recent influenza and started on Tamiflu Rocephin Zithromax. He has a history of dementia and this was exacerbated by his respiratory infection. On admission he had bibasilar pulmonary opacities consistent with pneumonia. He tolerated the antibiotics well and was less confused at time of discharge. Given his debilitated state with ambulatory dysfunction he was felt that he would benefit from physical therapy at [facility] with which he agreed. He would benefit from another 3 days of Rocephin and p.o. Zithromax. Probiotics will be necessary as well. He also had some dysphagia as evidence by studies performed with speech therapy and required pureed diet with nectar thickened liquids. CC: Dr. Alyssa Almonte Total Time: 41 min Code: 80852 (>30min.) - Physical Exam Vital Signs: Last Vital Signs Temp 97.4 F L 10/06/16 11:08 Pulse 59 L 10/06/16 11:08 Resp 20 10/06/16 11:08 BP 116/62 10/06/16 11:08 Pulse Ox 93 10/06/16 11:08 Oxygen Pulse Oxygen Saturation 93 O2 Device Room Air Oxygen Flow Rate 2 Fraction of Inspired Oxygen ( 55 FIO2) Constitutional: Alert (Awake), No apparent distress Oriented to: Time, Person, Place - HEENT Head: Normal ( normocephalic) Eye: Normal (PERRL, EOMI, Sclera white) Oropharynx: Normal (Pharynx:Moist without exudate,Gums-no swelling) Tympanic Membrane: Normal ENT EAC: Normal TMJ: Normal Nose: No Symptoms Reported (septum midline) - Respiratory/Cardiovascular Respiratory: Rhonchi. negative: Accessory Muscle Use, Retractions - GI Auscultation: Normal (NABS) Palpation: Normal (Soft,No rebound or guarding, non distended) Tenderness: Non tender Crouch's Sign: Negative - Musculoskeletal Back: Normal (Non-Tender) Extremities: Normal (Normal tone, Pulses 2+ No cyanosis or edema, FROM) - Integumentary Skin: Normal (Warm dry no rashes) Lymphatics: Normal (no adenopathy) - Neurologic Memory Impaired: Normal Motor Function: Normal (Motor 5/5 throughout.Normal tone, Pulses 2+ No cyanosis or edema, FROM) Cranial Nerve: Normal (CN II-XII intact sensation, strength 5/5) Cerebellar: Normal Mood Description: Normal Thought: Coherent Perception: Normal
[2016-10-06 12:33] VITALS: PULSE 57
== END 2016-10-06 17:30 | DRG 871 ==
LOC: ED 18:33 → PCU 21:49
PROVIDERS: ADMIT Internal Medicine; ATTEND Internal Medicine
PROC: 4A033R1 Measurement of Arterial Saturation, Peripheral, Percutaneous Approach (ICD-10-PCS; principal; 2016-10-01)
PROC: 5A09457 Assistance with Respiratory Ventilation, 24-96 Consecutive Hours, Continuous Positive Airway Pressure (ICD-10-PCS; 2016-10-01)
DX: A41.89 Other specified sepsis (principal); J96.21 Acute and chronic respiratory failure with hypoxia; J10.08 Influenza due to other identified influenza virus with other specified pneumonia; J12.89 Other viral pneumonia; J18.9 Pneumonia, unspecified organism; J45.901 Unspecified asthma with (acute) exacerbation; I42.9 Cardiomyopathy, unspecified; J44.9 Chronic obstructive pulmonary disease, unspecified; I42.6 Alcoholic cardiomyopathy; I10 Essential (primary) hypertension; R53.1 Weakness; F03.90 Unspecified dementia, unspecified severity, without behavioral disturbance, psychotic disturbance, mood disturbance, and anxiety; R13.10 Dysphagia, unspecified; M19.90 Unspecified osteoarthritis, unspecified site; F32.9 Major depressive disorder, single episode, unspecified; F41.9 Anxiety disorder, unspecified; E87.6 Hypokalemia; Z79.52 Long term (current) use of systemic steroids; Z79.82 Long term (current) use of aspirin; Z86.711 Personal history of pulmonary embolism
CPT/HCPCS: 36415; 36600; 51798; 71010; 71020; 80048; 80053; 81001; 82803; 83605; 83690; 83735; 83880; 84484; 85025; 85027; 85610; 85730; 87040; 87070; 87086; 87205; 87804; 93005; 94660; 96361; 96365; 96372; 97162; 99284; J0456; J0696; J1650; J1741; J1956; J2060; J3490; J7030; J7060; J7070